=== PATIENT | female | born 1955 | race Caucasian/White ===

== ENCOUNTER 2017-08-23 12:34 | Emergency (ER) | payer MEDICAID ==
[~2017-08-23] VITALS: Ht 158.8 cm; Wt 72.3 kg
[~2017-08-23 12:34] MED LIST: CALC-141 PO; CHOL200024 PO; ESTR42.53 TD; MAGN500T PO; MULT-516 PO; POTA99TA3 PO
[2017-08-23] MEDS ORDERED: ONDANSETRON 2MG/ML, 2ML IVPush ONE (13:30)
[2017-08-23] MEDS ORDERED: SODIUM CHLORIDE 0.9% 1,000ML IVBOLUS ONE (13:30)
[2017-08-23] MEDS ORDERED: ONDANSETRON 2MG/ML, 2ML ONE (13:49)
[2017-08-23 14:01] LABS: BASOPHILS % (AUTO) 0 % (0-1); EOSINOPHILS # (AUTO) 0.01 x10^3/uL (0-0.4); EOSINOPHILS % (AUTO) 0 % (1-7); LYMPHOCYTES # (AUTO) 0.53 x10^3/uL (1-3.4); LYMPHOCYTES % (AUTO) 5 % (22-44); MD NO; MEAN CORPUSCULAR HEMOGLOBIN 30.6 pg (27.0-34.8); MEAN CORPUSCULAR HGB CONC 33.7 g/dL (32.4-35.8); MEAN CORPUSCULAR VOLUME 90.7 fL (80-100); MEAN PLATELET VOLUME 8.2 fL (7.4-10.4); MONOCYTES # (AUTO) 0.39 x10^3/uL (0.2-0.8); MONOCYTES % (AUTO) 4 % (2-9); NEUTROPHILS # (AUTO) 9.04 x10^3/uL (1.8-6.8); NEUTROPHILS % (AUTO) 91 % (42-75); PLATELET COUNT 300 x10^3/uL (130-400); RED BLOOD COUNT 4.86 x10^6/uL (3.82-5.3); RED CELL DISTRIBUTION WIDTH 13.6 % (9.6-15.2)
[2017-08-23 14:13] LABS: ALANINE AMINOTRANSFERASE 18 U/L (12-78); ALBUMIN 2.9 g/dL (3.4-5.0); ANION GAP 6 mmol/L (5-15); CALCIUM 8.1 mg/dL (8.5-10.1); CHLORIDE 106 mmol/L (98-107)
[2017-08-23 14:15] LABS: ALKALINE PHOSPHATASE 101 U/L (45-117); BILIRUBIN,TOTAL 0.7 mg/dL (0.2-1.0); TOTAL PROTEIN 6.9 g/dL (6.4-8.2)
[2017-08-23] MEDS ORDERED: POTASSIUM CHLORIDE 20 MEQ TAB.ER.PRT PO ONE (15:30)
[2017-08-23 16:45] VITALS: BP 103/58
== END 2017-08-23 16:48 | disposition home or self-care (01) ==
LOC: ED 14:04
DX: R19.7 Diarrhea, unspecified (principal); R25.2 Cramp and spasm
CPT/HCPCS: 36415; 80053; 82550; 83690; 85025; 93005; 96361; 96374; 99285; J2405; J7030

== ENCOUNTER → 2018-01-14 | Outpatient (CLI) | payer OTHER | LOC: CFH 12:30 | PROVIDERS: ATTEND Internal Medicine | DX: L84 Corns and callosities (principal); M25.552 Pain in left hip; M79.673 Pain in unspecified foot; M89.9 Disorder of bone, unspecified | CPT/HCPCS: 72110 ==

== ENCOUNTER → 2018-01-31 | Outpatient (CLI) | payer OTHER ==
[2018-01-31 11:09] LABS: ALANINE AMINOTRANSFERASE 21 U/L (12-78); ALBUMIN 3.2 g/dL (3.4-5.0); ANION GAP 8 mmol/L (5-15); CALCIUM 8.5 mg/dL (8.5-10.1); CHLORIDE 109 mmol/L (98-107); CHOLESTEROL, TOTAL 130 mg/dL (140-239); CREATININE 0.49 mg/dL (0.55-1.02)
[2018-01-31 11:20] LABS: ALKALINE PHOSPHATASE 108 U/L (45-117); BILIRUBIN,TOTAL 0.7 mg/dL (0.2-1.0); CHOL/HDL RATIO 2.2; HDL CHOL % 46 % (28-40); HDL CHOLESTEROL (DIRECT) 60 mg/dL (40-60); LDL CHOLESTEROL,CALCULATED 58 mg/dL (54-169); THYROID STIMULATING HORMONE 0.645 mIU/L (0.358-3.740); TOTAL PROTEIN 7.1 g/dL (6.4-8.2); TRIGLYCERIDES 60 mg/dL (50-200); VLDL CHOLESTEROL 12 mg/dL (0-25)
== END | disposition home or self-care (01) ==
LOC: CFH 09:32
PROVIDERS: ATTEND Internal Medicine
DX: Z13.820 Encounter for screening for osteoporosis (principal); M85.88 Other specified disorders of bone density and structure, other site; M89.9 Disorder of bone, unspecified; N95.9 Unspecified menopausal and perimenopausal disorder; B35.1 Tinea unguium; F41.9 Anxiety disorder, unspecified; L84 Corns and callosities; M54.5 Low back pain; M62.838 Other muscle spasm
CPT/HCPCS: 36415; 77080; 80053; 80061; 82306; 84443

== ENCOUNTER 2018-04-14 14:13 | Emergency (ER) | payer OTHER ==
[~2018-04-14] VITALS: Ht 160 cm; Wt 71.6 kg
[2018-04-14] MEDS ORDERED: SODIUM CHLORIDE 0.9% 1,000ML IVBOLUS ONE (15:30)
[2018-04-14] MEDS ORDERED: SODIUM CHLORIDE FLUSH 10ML SYR IVF ONE (15:30)
[2018-04-14] MEDS ORDERED: ONDANSETRON 2MG/ML, 2ML IVPush ONE (15:30)
[2018-04-14] MEDS ORDERED: ONDANSETRON 2MG/ML, 2ML ONE (15:36)
[2018-04-14 15:44] LABS: BASOPHILS # (AUTO) 0.02 x10^3/uL (0-0.1); BASOPHILS % (AUTO) 0 % (0-1); EOSINOPHILS # (AUTO) 0.17 x10^3/uL (0-0.4); EOSINOPHILS % (AUTO) 2 % (1-7); LYMPHOCYTES # (AUTO) 1.42 x10^3/uL (1-3.4); LYMPHOCYTES % (AUTO) 17 % (22-44); MD NO; MEAN CORPUSCULAR HEMOGLOBIN 31.1 pg (27.0-34.8); MEAN CORPUSCULAR HGB CONC 34.1 g/dL (32.4-35.8); MEAN CORPUSCULAR VOLUME 91.2 fL (80-100); MEAN PLATELET VOLUME 7.7 fL (7.4-10.4); MONOCYTES # (AUTO) 0.64 x10^3/uL (0.2-0.8); MONOCYTES % (AUTO) 8 % (2-9); NEUTROPHILS # (AUTO) 5.95 x10^3/uL (1.8-6.8); NEUTROPHILS % (AUTO) 73 % (42-75); PLATELET COUNT 360 x10^3/uL (130-400); RED BLOOD COUNT 5.48 x10^6/uL (3.82-5.3); RED CELL DISTRIBUTION WIDTH 13.8 % (9.6-15.2)
[2018-04-14 15:53] LABS: ALANINE AMINOTRANSFERASE 23 U/L (12-78); ALBUMIN 3.6 g/dL (3.4-5.0); ANION GAP 6 mmol/L (5-15); CALCIUM 9.9 mg/dL (8.5-10.1); CHLORIDE 106 mmol/L (98-107)
[2018-04-14 15:55] LABS: ALKALINE PHOSPHATASE 122 U/L (45-117); BILIRUBIN,TOTAL 0.5 mg/dL (0.2-1.0); CREATININE 0.55 mg/dL (0.55-1.02); TOTAL PROTEIN 8.3 g/dL (6.4-8.2)
[2018-04-14 16:23] LABS: MICROSCOPIC NOT IND
[2018-04-14 16:29] LABS: CULTURE INDICATED? NO
[2018-04-14] MEDS ORDERED: OMNIPAQUE 350 MG/ML, 100ML BOTTLE ONE (17:29)
[2018-04-14] MEDS ORDERED: PROMETHAZINE 25 MG/ML, 1ML IM ONE (18:30)
[2018-04-14 18:44] VITALS: BP 144/85
== END 2018-04-14 18:47 | disposition home or self-care (01) ==
LOC: ED 18:39
DX: R10.13 Epigastric pain (principal); R11.2 Nausea with vomiting, unspecified; R19.7 Diarrhea, unspecified
CPT/HCPCS: 36415; 74177; 80053; 81003; 83690; 85025; 96361; 96374; 99285; J2405; J7030; Q9967

== ENCOUNTER → 2018-08-04 | Outpatient (CLI) | payer OTHER | END | disposition home or self-care (01) | LOC: CFH 10:26 | PROVIDERS: ATTEND Internal Medicine | DX: K21.9 Gastro-esophageal reflux disease without esophagitis (principal) | CPT/HCPCS: 87338 ==

== ENCOUNTER 2018-08-09 15:02 | Emergency (ER) | payer OTHER ==
[~2018-08-09] VITALS: Ht 157.5 cm; Wt 73.0 kg
[2018-08-09 15:42] VITALS: BP 146/92
[2018-08-09] MEDS ORDERED: DIAZEPAM 5 MG TABLET ONE (16:11)
[2018-08-09] MEDS ORDERED: DIAZEPAM 5 MG TABLET PO ONE (16:30)
[2018-08-09] MEDS ORDERED: SODIUM CHLORIDE FLUSH 10ML SYR IVF ONE (16:30)
[2018-08-09 16:48] LABS: BASOPHILS # (AUTO) 0.03 x10^3/uL (0-0.1); BASOPHILS % (AUTO) 0 % (0-1); EOSINOPHILS # (AUTO) 0.23 x10^3/uL (0-0.4); EOSINOPHILS % (AUTO) 3 % (1-7); LYMPHOCYTES # (AUTO) 1.75 x10^3/uL (1-3.4); LYMPHOCYTES % (AUTO) 23 % (22-44); MD NO; MEAN CORPUSCULAR HEMOGLOBIN 30.5 pg (27.0-34.8); MEAN CORPUSCULAR HGB CONC 33.4 g/dL (32.4-35.8); MEAN CORPUSCULAR VOLUME 91.3 fL (80-100); MONOCYTES # (AUTO) 0.76 x10^3/uL (0.2-0.8); MONOCYTES % (AUTO) 10 % (2-9); NEUTROPHILS % (AUTO) 63 % (42-75); PLATELET COUNT 346 x10^3/uL (130-400); RED BLOOD COUNT 4.32 x10^6/uL (3.82-5.3); RED CELL DISTRIBUTION WIDTH 13.9 % (9.6-15.2)
[2018-08-09 16:57] LABS: ALANINE AMINOTRANSFERASE 25 U/L (12-78); ALBUMIN 3.1 g/dL (3.4-5.0); ANION GAP 7 mmol/L (5-15); CALCIUM 8.1 mg/dL (8.5-10.1); CHLORIDE 112 mmol/L (98-107); CREATININE 0.48 mg/dL (0.55-1.02)
[2018-08-09 17:00] LABS: ALKALINE PHOSPHATASE 106 U/L (45-117); BILIRUBIN,TOTAL 0.2 mg/dL (0.2-1.0); TOTAL PROTEIN 6.6 g/dL (6.4-8.2)
[2018-08-09] MEDS ORDERED: OMNIPAQUE 350 MG/ML, 100ML BOTTLE ONE (17:43)
== END 2018-08-09 18:41 | disposition home or self-care (01) ==
LOC: ED 16:12
DX: M54.2 Cervicalgia (principal)
CPT/HCPCS: 36415; 72126; 72129; 80053; 85025; 99284; Q9967

== ENCOUNTER 2018-08-29 13:21 | Emergency (ER) | payer OTHER ==
[~2018-08-29] VITALS: Ht 157.5 cm; Wt 72.1 kg
[2018-08-29 14:05] LABS: BASOPHILS # (AUTO) 0.01 x10^3/uL (0-0.1); BASOPHILS % (AUTO) 0 % (0-1); EOSINOPHILS # (AUTO) 0.02 x10^3/uL (0-0.4); EOSINOPHILS % (AUTO) 0 % (1-7); LYMPHOCYTES # (AUTO) 0.66 x10^3/uL (1-3.4); LYMPHOCYTES % (AUTO) 5 % (22-44); MD NO; MEAN CORPUSCULAR HEMOGLOBIN 30.4 pg (27.0-34.8); MEAN CORPUSCULAR HGB CONC 33.3 g/dL (32.4-35.8); MEAN CORPUSCULAR VOLUME 91.4 fL (80-100); MEAN PLATELET VOLUME 7.8 fL (7.4-10.4); MONOCYTES # (AUTO) 0.56 x10^3/uL (0.2-0.8); MONOCYTES % (AUTO) 4 % (2-9); NEUTROPHILS # (AUTO) 12.68 x10^3/uL (1.8-6.8); NEUTROPHILS % (AUTO) 91 % (42-75); PLATELET COUNT 415 x10^3/uL (130-400); RED BLOOD COUNT 4.48 x10^6/uL (3.82-5.3); RED CELL DISTRIBUTION WIDTH 14.1 % (9.6-15.2)
[2018-08-29 14:33] LABS: ALBUMIN 3.1 g/dL (3.4-5.0); ANION GAP 7 mmol/L (5-15); CALCIUM 8.7 mg/dL (8.5-10.1); CHLORIDE 111 mmol/L (98-107)
[2018-08-29 14:34] LABS: CREATININE 0.54 mg/dL (0.55-1.02)
[2018-08-29 15:07] VITALS: BP 111/66
--- NOTE | 2018-08-29 15:07 | NUR ---
Resting in [place]. Remains mildly tachycardic. Provided with water.
[2018-08-29 15:25] LABS: C-REACTIVE PROTEIN, QUANT 0.9 mg/dL (0.02-0.49)
--- NOTE | 2018-08-29 15:25 | NUR ---
states it is ok to DC patient prior to CRP and TSH resulting.
--- NOTE | 2018-08-29 15:31 | NUR ---
Patient/Caregiver given discharge instructions and they have confirmed that they understand the instructions. Patient ambulatory with steady gait.
[2018-08-29 15:34] LABS: THYROID STIMULATING HORMONE 0.322 mIU/L (0.358-3.740)
== END 2018-08-29 15:31 | disposition home or self-care (01) ==
LOC: ED 13:47
DX: L03.114 Cellulitis of left upper limb (principal); Z79.82 Long term (current) use of aspirin
CPT/HCPCS: 36415; 80048; 82040; 84443; 85025; 86140; 99284

== ENCOUNTER 2018-09-05 16:51 | Emergency (ER) | payer OTHER ==
[~2018-09-05] VITALS: Ht 162.6 cm; Wt 71.9 kg
[2018-09-05 17:02] VITALS: BP 145/83
--- NOTE | 2018-09-05 17:49 | NUR ---
FROM LOBBY TO ROOM AT THIS TIME
[2018-09-05 17:51] LABS: BASOPHILS # (AUTO) 0.03 x10^3/uL (0-0.1); BASOPHILS % (AUTO) 0 % (0-1); EOSINOPHILS # (AUTO) 0.25 x10^3/uL (0-0.4); EOSINOPHILS % (AUTO) 3 % (1-7); LYMPHOCYTES # (AUTO) 2.02 x10^3/uL (1-3.4); LYMPHOCYTES % (AUTO) 26 % (22-44); MD NO; MEAN CORPUSCULAR HEMOGLOBIN 31.1 pg (27.0-34.8); MEAN CORPUSCULAR VOLUME 91.7 fL (80-100); MEAN PLATELET VOLUME 7.5 fL (7.4-10.4); MONOCYTES # (AUTO) 0.82 x10^3/uL (0.2-0.8); MONOCYTES % (AUTO) 11 % (2-9); NEUTROPHILS # (AUTO) 4.65 x10^3/uL (1.8-6.8); NEUTROPHILS % (AUTO) 60 % (42-75); PLATELET COUNT 406 x10^3/uL (130-400); RED BLOOD COUNT 4.52 x10^6/uL (3.82-5.3)
[2018-09-05 18:02] LABS: ALBUMIN 3.3 g/dL (3.4-5.0); ANION GAP 6 mmol/L (5-15); CALCIUM 9.2 mg/dL (8.5-10.1); CHLORIDE 109 mmol/L (98-107)
--- NOTE | 2018-09-05 18:05 | NUR ---
Assumed care of patient. C/O SOB. Seen at PCP and sent to ED for abnormal EKG. Placed on NIBP, pulse ox and school lunch monitor. Will continue to monitor.
[2018-09-05 18:09] LABS: ALANINE AMINOTRANSFERASE 29 U/L (12-78); ALKALINE PHOSPHATASE 104 U/L (45-117); BILIRUBIN,TOTAL 0.3 mg/dL (0.2-1.0); CREATININE 0.67 mg/dL (0.55-1.02); TOTAL PROTEIN 7.1 g/dL (6.4-8.2); TROPONIN I < 0.015 ng/mL (0.000-0.045)
[2018-09-05 18:47] LABS: FREE T4 (FREE THYROXINE) 1.25 ng/dL (0.76-1.46); THYROID STIMULATING HORMONE 0.281 mIU/L (0.358-3.740)
--- NOTE | 2018-09-05 19:08 | NUR ---
Patient/Caregiver given discharge instructions and they have confirmed that they understand the instructions. Patient ambulatory with steady gait.
== END 2018-09-05 19:08 | disposition home or self-care (01) ==
LOC: ED 19:01
DX: R06.00 Dyspnea, unspecified (principal)
CPT/HCPCS: 36415; 71045; 80053; 83880; 84439; 84443; 84481; 84484; 85025; 85379; 93005; 99284

== ENCOUNTER → 2018-10-10 | Outpatient (CLI) | payer OTHER | END | disposition home or self-care (01) | LOC: CFH 15:57 | PROVIDERS: ATTEND Psychiatry & Neurology Neurology | DX: G93.5 Compression of brain (principal); I67.82 Cerebral ischemia; I63.81 Other cerebral infarction due to occlusion or stenosis of small artery | CPT/HCPCS: 70551 ==

== ENCOUNTER → 2018-11-03 | Outpatient (CLI) | payer OTHER | END | disposition home or self-care (01) | LOC: CFH 07:50 | PROVIDERS: ATTEND Psychiatry & Neurology Neurology | DX: M40.292 Other kyphosis, cervical region (principal); M47.812 Spondylosis without myelopathy or radiculopathy, cervical region; M48.02 Spinal stenosis, cervical region; F44.4 Conversion disorder with motor symptom or deficit | CPT/HCPCS: 72040; 72141 ==

== ENCOUNTER → 2018-11-24 | Outpatient (CLI) | payer OTHER | END | disposition home or self-care (01) | LOC: RAD 09:45 | PROVIDERS: ATTEND Internal Medicine Gastroenterology | DX: K21.9 Gastro-esophageal reflux disease without esophagitis (principal); K58.9 Irritable bowel syndrome, unspecified; Z80.0 Family history of malignant neoplasm of digestive organs | CPT/HCPCS: 74230 ==

== ENCOUNTER → 2019-02-22 | Outpatient (CLI) | payer MEDICARE, MEDICAID | END | disposition home or self-care (01) | LOC: RAD 15:44 | PROVIDERS: ATTEND Family Medicine | DX: R07.89 Other chest pain (principal) | CPT/HCPCS: 71046 ==

== ENCOUNTER 2019-03-24 07:06 | Outpatient (CLI) | payer MEDICAID, MEDICARE | END 2019-03-24 23:59 | disposition home or self-care (01) | LOC: CVU 07:06 | PROVIDERS: ATTEND Internal Medicine Cardiovascular Disease | DX: I34.0 Nonrheumatic mitral (valve) insufficiency (principal); R94.31 Abnormal electrocardiogram [ECG] [EKG]; R07.89 Other chest pain | CPT/HCPCS: 0399T; 93306 ==

== ENCOUNTER → 2019-09-22 | Outpatient (CLI) | payer MEDICARE, MEDICAID | END | disposition home or self-care (01) | LOC: CFH 07:42 | PROVIDERS: ATTEND Internal Medicine Cardiovascular Disease | DX: I08.0 Rheumatic disorders of both mitral and aortic valves (principal); I10 Essential (primary) hypertension | CPT/HCPCS: 93306 ==

== ENCOUNTER 2019-10-09 18:35 | Emergency (ER) | payer MEDICARE, MEDICAID ==
[~2019-10-09] VITALS: Ht 157.5 cm; Wt 73.0 kg
[2019-10-09 18:53] VITALS: BP 131/75
[2019-10-09] MEDS ORDERED: NEOSPORIN OINT. PKT 1 PACKET ONE (19:16)
--- NOTE | 2019-10-09 19:22 | NUR ---
RN to bedside, emergency department pharmacy technician program director at bedside cleaning wound per provider order. Awaiting recheck by provider.
[2019-10-09] MEDS ORDERED: ACETAMINOPHEN 325 MG TABLET PO ONE (20:00)
[2019-10-09] MEDS ORDERED: ACETAMINOPHEN 325 MG TABLET ONE (20:12)
== END 2019-10-09 20:54 | disposition home or self-care (01) ==
LOC: ED 20:47
DX: S00.83XA Contusion of other part of head, initial encounter (principal); S00.31XA Abrasion of nose, initial encounter; S00.211A Abrasion of right eyelid and periocular area, initial encounter; G89.11 Acute pain due to trauma; M25.531 Pain in right wrist; R42 Dizziness and giddiness; I10 Essential (primary) hypertension; K21.9 Gastro-esophageal reflux disease without esophagitis; W01.0XXA Fall on same level from slipping, tripping and stumbling without subsequent striking against object, initial encounter; Y93.89 Activity, other specified; Y92.89 Other specified places as the place of occurrence of the external cause; Y99.8 Other external cause status
CPT/HCPCS: 70450; 70486; 72125; 99285

== ENCOUNTER 2020-06-24 15:00 | Outpatient (CLI) | payer MEDICARE | END 2020-06-24 23:59 | disposition home or self-care (01) | LOC: RAD 15:00 | PROVIDERS: ATTEND Family Medicine | DX: M71.22 Synovial cyst of popliteal space [Baker], left knee (principal); R22.42 Localized swelling, mass and lump, left lower limb ==

== ENCOUNTER → 2020-08-20 | Outpatient (CLI) | payer MEDICARE | END | disposition home or self-care (01) | LOC: CFH 13:25 | PROVIDERS: ATTEND Internal Medicine Cardiovascular Disease | DX: I08.0 Rheumatic disorders of both mitral and aortic valves (principal); R06.02 Shortness of breath; I42.9 Cardiomyopathy, unspecified | CPT/HCPCS: 93306 ==

== ENCOUNTER 2021-02-13 20:35 | Inpatient (IN) | payer MEDICARE ==
[~2021-02-13] VITALS: Ht 157.5 cm; Wt 82.4 kg
[2021-02-13] MEDS ORDERED: ONDANSETRON 2MG/ML, 2ML ONE (21:27)
[2021-02-13] MEDS ORDERED: ONDANSETRON 2MG/ML, 2ML IVPush ONE (21:30)
[2021-02-13] MEDS ORDERED: CEFTRIAXONE 1,000 MG in DEXTROSE 5% 50 ML IVPB ONE (21:30)
[2021-02-13] MEDS ORDERED: SODIUM CHLORIDE 0.9% 1,000ML IVBOLUS ONE (21:30)
[2021-02-13] MEDS ORDERED: ACETAMINOPHEN 500 MG TABLET PO ONE (21:30)
[2021-02-13 21:44] LABS: BASOPHILS % (AUTO) 0 % (0-1); EOSINOPHILS % (AUTO) 0 % (1-7); LYMPHOCYTES % (AUTO) 5 % (22-44); MEAN CORPUSCULAR HEMOGLOBIN 23.9 pg (27.0-34.8); MEAN PLATELET VOLUME 7.5 fL (7.4-10.4); MONOCYTES % (AUTO) 7 % (2-9); NEUTROPHILS % (AUTO) 88 % (42-75); PLATELET COUNT 369 x10^3/uL (130-400); RED BLOOD COUNT 4.31 x10^6/uL (3.82-5.3); RED CELL DISTRIBUTION WIDTH 17.3 % (9.6-15.2)
--- NOTE | 2021-02-13 21:53 | NUR ---
PT WHEELED TO ROOM. AND IN STRETCHER, AND ON CR MONITOR. MD TO BEDSIDE TO EVAL PT. PT C/O PAIN TO LOWER BACK WELL. PIV STARTED TO RIGHT AC X1 ATTEMPT 20G AND FLUSHED EASILY AFTER LABS DRAWN FOR REPEAT T&C AND 2ND SET OF BLOOD CULTURES. PIV SECURED WITHOUT ISSUE. MEDS ADMINISTERED AND ANTIBIOTICS HUNG TO RUN OVER 30 MIN. PT GIVEN SMALL SIPS OF WATER PER REQUEST.
[2021-02-13 21:55] LABS: ALANINE AMINOTRANSFERASE 17 U/L (12-78); ALBUMIN 2.8 g/dL (3.4-5.0); ANION GAP 7 mmol/L (5-15); CALCIUM 8.9 mg/dL (8.5-10.1); CHLORIDE 108 mmol/L (98-107); CREATININE 0.63 mg/dL (0.55-1.02)
[2021-02-13 21:57] LABS: ALKALINE PHOSPHATASE 182 U/L (45-117); BILIRUBIN,TOTAL 0.2 mg/dL (0.2-1.0); TOTAL PROTEIN 7.5 g/dL (6.4-8.2)
[2021-02-13] MEDS ORDERED: ACETAMINOPHEN 500 MG TABLET ONE (22:34)
[2021-02-13] MEDS ORDERED: OMNIPAQUE 350 MG/ML, 100ML BOTTLE ONE (22:46)
--- NOTE | 2021-02-13 22:47 | NUR ---
PT TO CT AND BACK, BLOOD AND ALL LABS COLLECTED, AND ANTIBIOTICS FINISHING NOW. TEMP RECHECK IS 100.4 ORAL
--- NOTE | 2021-02-13 23:12 | NUR ---
PT CALM AND COMFORTABLE IN NO ACUTE DISTRESS. GOOD AERATION AND OXYGENATION. PT RESTING COMFORTABLY AND AWAITING ON LAB RESULTS.
[2021-02-14] MEDS ORDERED: CIPROFLOXACIN/PMX 400MG/200ML 200 ML IVPB ONE (00:30)
[2021-02-14] MEDS ORDERED: DOCUSATE 100 MG CAPSULE PO PRN (01:00)
[2021-02-14] MEDS ORDERED: ONDANSETRON 2MG/ML, 2ML IVPush PRN (01:00)
[2021-02-14] MEDS ORDERED: ZOLPIDEM 5MG TABLET PO PRN (01:00)
[2021-02-14] MEDS ORDERED: CYCLOBENZAPRINE 10 MG TABLET PO PRN (01:00)
[2021-02-14] MEDS ORDERED: OXYcodone IR 5MG TABLET PO PRN (01:00)
[2021-02-14] MEDS ORDERED: GUAIFENESIN/DM 200-20MG, 10ML UDC PO PRN (01:00)
[2021-02-14] MEDS ORDERED: morphine SULFATE 10 MG/ML, 1ML IVPush PRN (01:00)
[2021-02-14] MEDS ORDERED: ENALAPRILAT 1.25 MG/ML, 2ML IVPush PRN (01:00)
--- NOTE | 2021-02-14 01:31 | NUR ---
REPORT GIVEN TO FLOOR RN. AND PT TRANSFERRED TO FLOOR WITHOUT INCIDENT.
[2021-02-14] MEDS: LACTATED RINGERS 1,000 ML IV SCH ×3 (01:58→21:42)
[2021-02-14] MEDS: CIPROFLOXACIN/PMX 400MG/200ML 200 ML IV SCH ×2 (01:59→14:25)
[2021-02-14 02:14] VITALS: BP 96/66
[2021-02-14] MEDS: METRONIDAZOLE PMX 500MG/100ML 100 ML IV SCH ×3 (03:04→18:45)
[2021-02-14 03:18] VITALS: BP 118/74
[2021-02-14 03:23] LABS: CLOSTRIDIUM DIFFICILE ANTIGEN NEGATIVE; CLOSTRIDIUM DIFFICILE TOXIN NEGATIVE (Negative)
[2021-02-14 04:39] LABS: MEAN CORPUSCULAR HEMOGLOBIN 24.1 pg (27.0-34.8); MEAN PLATELET VOLUME 7.4 fL (7.4-10.4); PLATELET COUNT 336 x10^3/uL (130-400); RED BLOOD COUNT 4.11 x10^6/uL (3.82-5.3); RED CELL DISTRIBUTION WIDTH 17.4 % (9.6-15.2)
[2021-02-14 04:53] LABS: % IRON SATURATION 2 % (20-55); ANION GAP 6 mmol/L (5-15); CALCIUM 8.2 mg/dL (8.5-10.1); CHLORIDE 108 mmol/L (98-107); CREATININE 0.69 mg/dL (0.55-1.02); IRON LEVEL 7 mcg/dL (50-170); TOTAL IRON BINDING CAPACITY 381 mcg/dL (250-450)
[2021-02-14 05:52] LABS: ANISOCYTOSIS 1+; HYPOCHROMIA 1+; LYMPH#(MANUAL) 0.45 x10^3/uL (1-3.4); LYMPHS% (MANUAL) 2 % (22-44); MICROCYTOSIS 1+; MONOS#(MANUAL) 0.45 x10^3/uL (0.3-2.7); MONOS% (MANUAL) 2 % (2-9); SEGS% (MANUAL) 96 % (42-75)
[2021-02-14 05:53] LABS: <PLATELET ESTIMATE> ADEQUATE; <PLT MORPHOLOGY> NORMAL PLT MORPH
[2021-02-14 07:06] VITALS: BP 114/73
[2021-02-14] MEDS: ACETAMINOPHEN 325 MG TABLET PO PRN (08:14)
[2021-02-14] MEDS: FAMOTIDINE 20 MG TABLET PO SCH ×2 (08:15→21:38)
[2021-02-14 12:27] LABS: MICROSCOPIC AUTO
[2021-02-14 12:39] VITALS: BP 100/64
[2021-02-14 18:47] VITALS: BP 113/71
[2021-02-14] MEDS: PSYLLIUM PACKET PO SCH (21:42)
[2021-02-15 00:09] VITALS: BP 96/61
[2021-02-15] MEDS: METRONIDAZOLE PMX 500MG/100ML 100 ML IV SCH ×3 (03:00→19:30)
[2021-02-15 04:08] LABS: BASOPHILS % (AUTO) 0 % (0-1); EOSINOPHILS % (AUTO) 0 % (1-7); LYMPHOCYTES % (AUTO) 9 % (22-44); MEAN CORPUSCULAR HEMOGLOBIN 23.8 pg (27.0-34.8); MEAN CORPUSCULAR HGB CONC 31.8 g/dL (32.4-35.8); MEAN PLATELET VOLUME 7.9 fL (7.4-10.4); MONOCYTES % (AUTO) 9 % (2-9); NEUTROPHILS % (AUTO) 82 % (42-75); PLATELET COUNT 280 x10^3/uL (130-400); RED BLOOD COUNT 3.83 x10^6/uL (3.82-5.3); RED CELL DISTRIBUTION WIDTH 17.4 % (9.6-15.2)
[2021-02-15 04:21] LABS: ANION GAP 6 mmol/L (5-15); CALCIUM 8.2 mg/dL (8.5-10.1); CHLORIDE 107 mmol/L (98-107); CREATININE 0.46 mg/dL (0.55-1.02)
[2021-02-15] MEDS: CIPROFLOXACIN/PMX 400MG/200ML 200 ML IV SCH ×2 (04:52→15:48)
[2021-02-15 06:26] VITALS: BP 102/57
[2021-02-15] MEDS: LACTATED RINGERS 1,000 ML IV SCH ×2 (07:09→18:00)
[2021-02-15] MEDS: PSYLLIUM PACKET PO SCH ×2 (10:18→21:58)
[2021-02-15] MEDS: FAMOTIDINE 20 MG TABLET PO SCH ×2 (10:18→21:59)
[2021-02-15] MEDS ORDERED: LOPERAMIDE 2 MG CAPSULE PO PRN (14:00)
[2021-02-15 14:50] VITALS: BP 115/75
[2021-02-15 19:05] VITALS: BP 128/85
[2021-02-15] MEDS: ACETAMINOPHEN 325 MG TABLET PO PRN (23:45)
[2021-02-16 01:58] VITALS: BP 122/79
[2021-02-16] MEDS: METRONIDAZOLE PMX 500MG/100ML 100 ML IV SCH ×3 (02:51→19:27)
[2021-02-16] MEDS ORDERED: [UNRECOGNIZED DRUG - CODE] PO (03:05)
[2021-02-16] MEDS ORDERED: CARV25TA PO (03:05)
[2021-02-16] MEDS ORDERED: OMEP20CA20 PO (03:05)
[2021-02-16] MEDS ORDERED: SPIR10PO PO (03:05)
[2021-02-16] MEDS ORDERED: VALS160T3 PO (03:05)
[2021-02-16] MEDS: CIPROFLOXACIN/PMX 400MG/200ML 200 ML IV SCH ×2 (04:03→16:15)
[2021-02-16 05:09] LABS: BASOPHILS % (AUTO) 0 % (0-1); EOSINOPHILS % (AUTO) 2 % (1-7); LYMPHOCYTES % (AUTO) 13 % (22-44); MEAN CORPUSCULAR HEMOGLOBIN 23.6 pg (27.0-34.8); MEAN CORPUSCULAR HGB CONC 31.9 g/dL (32.4-35.8); MONOCYTES % (AUTO) 12 % (2-9); NEUTROPHILS % (AUTO) 74 % (42-75); PLATELET COUNT 298 x10^3/uL (130-400); RED BLOOD COUNT 3.84 x10^6/uL (3.82-5.3); RED CELL DISTRIBUTION WIDTH 17.6 % (9.6-15.2)
[2021-02-16 07:28] VITALS: BP 129/78
[2021-02-16] MEDS: PSYLLIUM PACKET PO SCH ×2 (08:10→21:00)
[2021-02-16] MEDS: FAMOTIDINE 20 MG TABLET PO SCH ×2 (08:10→21:50)
[2021-02-16] MEDS: LACTATED RINGERS 1,000 ML IV SCH (08:10)
[2021-02-16] MEDS ORDERED: POTASSIUM CHLORIDE 40 MEQ in SODIUM CHLORIDE 0.9% 500 ML IV ONE (10:00)
[2021-02-16 10:06] LABS: ANION GAP 4 mmol/L (5-15); CALCIUM 8.9 mg/dL (8.5-10.1); CHLORIDE 111 mmol/L (98-107); CREATININE 0.45 mg/dL (0.55-1.02)
[2021-02-16 12:20] VITALS: BP 113/75
[2021-02-16] MEDS ORDERED: POTASSIUM CHLORIDE 20 MEQ TAB.ER.PRT PO ONE (14:00)
[2021-02-16] MEDS ORDERED: FUROSEMIDE 20 MG/2 ML IV ONE (16:00)
[2021-02-16 18:28] VITALS: BP 119/78
[2021-02-16] MEDS ORDERED: LORazepam 0.5MG TABLET PO ONE (19:00)
[2021-02-17] MEDS: ACETAMINOPHEN 325 MG TABLET PO PRN (01:06)
[2021-02-17 01:08] VITALS: BP 119/77
[2021-02-17] MEDS: METRONIDAZOLE PMX 500MG/100ML 100 ML IV SCH ×2 (02:57→11:19)
[2021-02-17] MEDS: CIPROFLOXACIN/PMX 400MG/200ML 200 ML IV SCH ×2 (04:43→16:30)
[2021-02-17 05:21] LABS: BASOPHILS % (AUTO) 0 % (0-1); EOSINOPHILS % (AUTO) 3 % (1-7); LYMPHOCYTES % (AUTO) 18 % (22-44); MEAN CORPUSCULAR HEMOGLOBIN 24.1 pg (27.0-34.8); MEAN CORPUSCULAR HGB CONC 32.8 g/dL (32.4-35.8); MONOCYTES % (AUTO) 10 % (2-9); NEUTROPHILS % (AUTO) 69 % (42-75); PLATELET COUNT 313 x10^3/uL (130-400); RED BLOOD COUNT 3.74 x10^6/uL (3.82-5.3)
[2021-02-17 05:25] LABS: CHLORIDE 110 mmol/L (98-107)
[2021-02-17 05:27] LABS: % IRON SATURATION 7 % (20-55); ANION GAP 4 mmol/L (5-15); CREATININE 0.47 mg/dL (0.55-1.02); IRON LEVEL 24 mcg/dL (50-170); TOTAL IRON BINDING CAPACITY 328 mcg/dL (250-450)
[2021-02-17 07:54] VITALS: BP 113/76
[2021-02-17] MEDS ORDERED: METR500T PO (08:16)
[2021-02-17] MEDS ORDERED: CIPR250T27 PO (08:16)
[2021-02-17] MEDS ORDERED: LOPE2CAP PO (08:16)
[2021-02-17] MEDS: PSYLLIUM PACKET PO SCH (09:44)
[2021-02-17] MEDS: FAMOTIDINE 20 MG TABLET PO SCH (09:44)
[2021-02-17 13:48] VITALS: BP 120/76
[2021-02-18] MEDS ORDERED: FAMOTIDINE 20 MG TABLET PO SCH (09:00)
== END 2021-02-17 18:11 | disposition home health service (06) | DRG 872 ==
LOC: ED 21:07 → EDIP 02-14 00:36 → 3N 02-14 01:20
PROVIDERS: ADMIT Internal Medicine; ATTEND Hospitalist
DX: A41.9 Sepsis, unspecified organism (principal); A09 Infectious gastroenteritis and colitis, unspecified; E86.0 Dehydration; D50.9 Iron deficiency anemia, unspecified; E66.9 Obesity, unspecified; Z68.33 Body mass index [BMI] 33.0-33.9, adult; Z88.6 Allergy status to analgesic agent; Z88.8 Allergy status to other drugs, medicaments and biological substances; E87.6 Hypokalemia; E87.8 Other disorders of electrolyte and fluid balance, not elsewhere classified; I10 Essential (primary) hypertension; Z90.710 Acquired absence of both cervix and uterus; K21.9 Gastro-esophageal reflux disease without esophagitis; B96.89 Other specified bacterial agents as the cause of diseases classified elsewhere; M54.16 Radiculopathy, lumbar region
CPT/HCPCS: 36415; 71045; 74177; 80048; 80053; 81001; 82728; 83540; 83550; 83605; 83690; 83735; 85025; 86850; 86900; 87040; 87046; 87077; 87086; 87252; 87324; 87427; 89055; 93005; 96365; 96375; 99285; G0378; J0696; J0744; J2405; J3480; Q9967; J1940; J7030; J7040; J7120

== ENCOUNTER 2021-02-22 18:56 | Emergency (ER) | payer MEDICARE ==
[~2021-02-22] VITALS: Ht 160 cm; Wt 78.2 kg
[~2021-02-22 18:56] MED LIST changes: +CARV25TA PO; +CIPR250T27 PO; +LOPE2CAP PO; +METR500T PO; +OMEP20CA20 PO; +SPIR10PO PO; +VALS160T3 PO; +[UNRECOGNIZED DRUG - CODE] PO
--- NOTE | 2021-02-22 19:12 | NUR ---
INITIAL PT CONTACT. PT PRESENTS TO ED C/O "LITTLE BIT OF BLOOD WHEN I POOP (DX WITH COLITIS), WHEN I LAY DOWN MY CHEST HURTS AND I'M JUST SCARED I JUST LEFT HERE WEDNESDAY" SOB WHILE WALKING AND MY TEETH HURT AND SWELLING IN LEGS, DENIES CP AT CURRENT TIME, SPEAKING IN FULL SENTENCES. PT ANXIOUS AND TEARFUL. PT PLACED ON CONTINUOUS MONITORING, CALL LIGHT AND PERSONAL BELONGINGS WITHIN REACH. NO ADDITIONAL NEEDS AT THIS TIME. AWAITING ERP.
--- NOTE | 2021-02-22 19:30 | NUR ---
ERP AT BEDSIDE
[2021-02-22 20:00] LABS: ALANINE AMINOTRANSFERASE 18 U/L (12-78); ALBUMIN 2.6 g/dL (3.4-5.0); ANION GAP 5 mmol/L (5-15); CALCIUM 8.6 mg/dL (8.5-10.1); CHLORIDE 109 mmol/L (98-107); CREATININE 0.76 mg/dL (0.55-1.02)
[2021-02-22] MEDS ORDERED: SODIUM CHLORIDE FLUSH 10ML SYR IVF ONE (20:00)
[2021-02-22] MEDS ORDERED: SODIUM CHLORIDE 0.9% 1,000 ML IV ONE (20:00)
[2021-02-22 20:05] LABS: ALKALINE PHOSPHATASE 147 U/L (45-117); BILIRUBIN,TOTAL 0.2 mg/dL (0.2-1.0); TOTAL PROTEIN 6.8 g/dL (6.4-8.2); TROPONIN I < 0.015 ng/mL (0.000-0.045)
[2021-02-22 20:06] LABS: BASOPHILS % (AUTO) 1 % (0-1); EOSINOPHILS % (AUTO) 2 % (1-7); LYMPHOCYTES % (AUTO) 15 % (22-44); MEAN CORPUSCULAR HEMOGLOBIN 23.9 pg (27.0-34.8); MEAN CORPUSCULAR HGB CONC 32.5 g/dL (32.4-35.8); MEAN PLATELET VOLUME 7.6 fL (7.4-10.4); MONOCYTES % (AUTO) 13 % (2-9); NEUTROPHILS % (AUTO) 70 % (42-75); PLATELET COUNT 482 x10^3/uL (130-400); RED BLOOD COUNT 3.69 x10^6/uL (3.82-5.3); RED CELL DISTRIBUTION WIDTH 17.9 % (9.6-15.2)
[2021-02-22] MEDS ORDERED: SODIUM CHLORIDE 0.9% 1,000ML IVBOLUS ONE (22:00)
[2021-02-22 22:05] LABS: MICROSCOPIC AUTO
[2021-02-22 23:22] VITALS: BP 141/82
--- NOTE | 2021-02-22 23:22 | NUR ---
Patient given discharge instructions and they have confirmed that they understand the instructions. Patient ambulatory with steady gait, with use of personal walker. NAD, all questions answered appropriately, denies additional needs at this time. No personal belongings left in room after discharge.
== END 2021-02-22 23:23 | disposition home or self-care (01) ==
LOC: ED 19:15
DX: A09 Infectious gastroenteritis and colitis, unspecified (principal); R07.89 Other chest pain; D53.9 Nutritional anemia, unspecified; I10 Essential (primary) hypertension; K21.9 Gastro-esophageal reflux disease without esophagitis
CPT/HCPCS: 36415; 80053; 81001; 83880; 84484; 85025; 87086; 93005; 96360; 96361; 99284; J7030

== ENCOUNTER 2021-04-08 17:13 | Emergency (ER) | payer MEDICARE ==
[~2021-04-08] VITALS: Ht 160 cm; Wt 77.0 kg
--- NOTE | 2021-04-08 18:26 | NUR ---
to room from lobby at this time
--- NOTE | 2021-04-08 18:40 | NUR ---
PT PRESENTS TO ED WITH LLE SWELLING X1 WEEK. PT DENIES ANY TRAUMA/INJURY. PT A&O, RESPS EVEN AND UNLABORED, VSS, NADN.
[2021-04-08 18:52] LABS: BASOPHILS % (AUTO) 1 % (0-1); EOSINOPHILS % (AUTO) 5 % (1-7); LYMPHOCYTES % (AUTO) 22 % (22-44); MEAN CORPUSCULAR HEMOGLOBIN 23.5 pg (27.0-34.8); MEAN CORPUSCULAR HGB CONC 31.8 g/dL (32.4-35.8); MEAN PLATELET VOLUME 7.5 fL (7.4-10.4); MONOCYTES % (AUTO) 11 % (2-9); NEUTROPHILS % (AUTO) 62 % (42-75); PLATELET COUNT 350 x10^3/uL (130-400); RED BLOOD COUNT 3.82 x10^6/uL (3.82-5.3); RED CELL DISTRIBUTION WIDTH 18.4 % (9.6-15.2)
[2021-04-08 19:03] LABS: ALBUMIN 3.1 g/dL (3.4-5.0); ANION GAP 8 mmol/L (5-15); CALCIUM 9.5 mg/dL (8.5-10.1); CHLORIDE 111 mmol/L (98-107); CREATININE 0.62 mg/dL (0.55-1.02)
--- NOTE | 2021-04-08 19:51 | NUR ---
us at bedside
[2021-04-08 21:28] VITALS: BP 121/49
== END 2021-04-08 21:30 | disposition home or self-care (01) ==
LOC: ED 20:36
DX: M71.22 Synovial cyst of popliteal space [Baker], left knee (principal); R60.0 Localized edema; I10 Essential (primary) hypertension; K21.9 Gastro-esophageal reflux disease without esophagitis
CPT/HCPCS: 36415; 80048; 82040; 84550; 85025; 99285

== ENCOUNTER → 2021-04-10 | Outpatient (CLI) | payer MEDICARE | END | disposition home or self-care (01) | LOC: CFH 08:18 | PROVIDERS: ATTEND Family Medicine | DX: M85.88 Other specified disorders of bone density and structure, other site (principal) | CPT/HCPCS: 77080 ==